=== PATIENT | female | born 1995 | race Two or more races ===

== ENCOUNTER 2019-02-14 23:33 | Emergency (ER) | payer OTHER ==
--- NOTE | 2019-02-15 02:05 | ED Physician Documentation ---
History of Present Illness - Stated complaint Stated Complaint: INSECT BITE/NAUSEA - Chief complaint Chief Complaint: Wound - History obtained from History obtained from: Patient - History of Present Illness Timing: Today - Additonal information Additional information: 23-year-old female was out with her dog outside of her house which has a large wood pile by it when she felt something in her chest and found a spider that she eventually squished. She said states that it was just black with a red hourglass on his abdomen. She is concerned about latrodectism. She has a small reddened area over the right anterior chest wall and there is central sparring. The bite is mild appearing and mildly tender. She has some spams of the left arm and the right arm and some nausea. Review of Systems Constitutional: denies: Fever, Chills Eyes: denies: Decreased vision Ears: denies: Ear pain Nose: denies: Rhinorrhea / runny nose, Congestion Throat: denies: Sore throat Cardiac: denies: Chest pain / pressure, Palpitations Respiratory: denies: Dyspnea, Cough GI: reports: Nausea. denies: Abdominal Pain, Vomiting, Constipation, Diarrhea : denies: Dysuria, Frequency Skin: reports: Bite / sting. denies: Rash Musculoskeletal: reports: Extremity pain. 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 : None HEENT: None Psych: None Musculoskeletal: None Derm: None - Past Surgical History Past Surgical History: No - Present Medications Home Medications: Ambulatory Orders Medication Instructions Recorded Confirmed No Known Home Medications 02/14/19 02/14/19 - Allergies Allergies/Adverse Reactions: Allergies Allergy/AdvReac Type Severity Reaction Status Date / Time No Known Drug Allergies Allergy Verified 02/14/19 23:39 - Social History Does the pt smoke?: No Smoking Status: Former smoker Does the pt drink ETOH?: Yes ETOH Use: Beer, Liquor Does the pt have substance abuse?: No - Immunizations Immunizations are current?: Yes - POLST Patient has POLST: No PD ED PE NORMAL - Vitals Vital signs reviewed: Yes (hypertensive ) - General General: Alert and oriented X 3, No acute distress, Well developed/nourished - HEENT HEENT: Atraumatic, PERRL, EOMI - Neck Neck: Supple, no meningeal sign, No bony TTP - Cardiac Cardiac: RRR, No murmur - Respiratory Respiratory: No respiratory distress, Clear bilaterally, Other (on the right anterior chest wall there appears to be an area about 2cm round with central paleness and non-discript borders. ) - Abdomen Abdomen: Soft, Non tender - Back Back: No CVA TTP, No spinal TTP - Derm Derm: Normal color, Warm and dry, No rash - Extremities Extremities: No deformity, No edema - Neuro Neuro: Alert and oriented X 3, pacu nurse 2-12 intact, No motor deficit, No sensory deficit, Normal speech Eye Opening: Spontaneous Motor: Obeys Commands Verbal: Oriented GCS Score: 15 - Psych Psych: Normal mood, Normal affect Results - Vitals Vitals: Vital Signs - 24 hr 02/14/19 02/15/19 23:37 02:24 Temperature 36.8 C 36.4 C L Heart Rate 81 75 Respiratory 16 16 Rate Blood Pressure 145/109 H 134/104 H O2 Saturation 100 100 Oxygen O2 Source Room air PD MEDICAL DECISION MAKING - ED course Complexity details: reviewed results, re-evaluated patient, considered differential, d/w patient ED course: 23 y/o female with what appears to be a spider bite with mild envenomation symptoms. We will provide flexeril pre-claude to use tonight as needed. Departure - Departure Disposition: 01 Home, Self Care Clinical Impression: Spider bite, venomous Instructions: ED Bite Insect Black Spider Follow-Up: IZABELA Patel [Provider Group]
[2019-02-15 02:24] VITALS: BP 134/104
[2019-02-15] MEDS ORDERED: CYCLOBENZAPRINE 10 MG Prepack 2 PO PRN (02:24)
== END 2019-02-15 02:30 | disposition home or self-care (01) ==
LOC: ED 23:33
DX: T63.311A Toxic effect of venom of black widow spider, accidental (unintentional), initial encounter (principal); M79.89 Other specified soft tissue disorders; Z87.891 Personal history of nicotine dependence
CPT/HCPCS: 99283; 99284